=== PATIENT | female | born 1970 | race African-American/Black ===

== ENCOUNTER 2019-12-06 05:43 | Emergency (ER) | payer SELFPAY ==
[~2019-12-06] VITALS: Ht 147.3 cm; Wt 72.6 kg
[2019-12-06 06:18] VITALS: BP 128/89
== END 2019-12-06 06:20 | disposition home or self-care (01) ==
LOC: ER 05:47
DX: J40 Bronchitis, not specified as acute or chronic (principal); M54.5 Low back pain; Z88.8 Allergy status to other drugs, medicaments and biological substances
CPT/HCPCS: 71045; A4663